=== PATIENT | male | born 1965 | race African-American/Black ===

== ENCOUNTER 2016-05-25 04:20 | Emergency (ER) | payer BC ==
[~2016-05-25] VITALS: Ht 185.4 cm; Wt 102.1 kg
--- NOTE | ~2016-05-25 | EKG ---
[place] [address] [facility] [place] [address] ELECTROCARDIOGRAM REPORT Name: SARAH MEJIA Room #: 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: : 1965 Requested By: Rosalie Vides Order Number: [id number] MD: Silas Davey Measurements Intervals [place] Rate: 109 P: 49 NJ: 190 QRS: 49 QRSD: 93 T: -69 QT: 326 QTc: 440 Interpretive Statements Sinus tachycardia Nonspecific ST and T wave abnormality No previous ECG available for comparison Electronically Signed On 05-25-2016 7:59:52 [employer]IL HEATER INST[employer]ER by Silas Davey [email or web address] <ELECTRONICALLY SIGNED> By: Silas Davey MD, [facility] 05/25/16 0759 [id number] [id number] Silas Davey MD, FACC /EPI
[2016-05-25] MEDS ORDERED: CLARITIN10 MG PO (04:39)
[2016-05-25 04:47] LABS: ABSOLUTE NEUTROPHILS 3.4 thou/uL (1.4-8.2); BASOPHILS 0.6 % (0.0-2.0); EOSINOPHILS 4.4 % (0.0-3.0); HEMATOCRIT 54.5 % (42.0-52.0); HEMOGLOBIN 18.1 gm/dL (14.0-18.0); LYMPHOCYTES 30.8 % (24.0-44.0); MCH 29.2 pg (26.0-34.0); MCHC 33.2 % (28.0-37.0); MONOCYTES 11.4 % (1.0-8.0); PLATELET COUNT 119 thou/uL (150-400); POLYS 52.8 % (36.0-66.0); RDW 15.3 % (10.5-14.5); WBC 6.5 thou/uL (4.0-11.0)
[2016-05-25 04:50] LABS: MANUAL DIFF NO
[2016-05-25 04:58] LABS: CALCIUM 9.1 mg/dL (8.5-10.1); CREATININE 1.4 mg/dL (0.6-1.3); POTASSIUM 3.5 mmol/L (3.5-5.1)
[2016-05-25] MEDS ORDERED: AZITHROMYCIN 2250 MG PO (05:30)
[2016-05-25 05:33] VITALS: BP 124/80
[2016-05-25 05:37] LABS: LARGE PLATELETS OCCASIONAL
[2016-05-26] MEDS ORDERED: CHLORPROMAZINE25 M1 PO ×2 (14:48→14:50)
[2016-05-26] MEDS ORDERED: FLEXERIL PO (15:20)
[2016-05-26] MEDS ORDERED: LIORESAL 10 MG10 MG PO (15:22)
[2016-06-08] MEDS ORDERED: TYLENOL PM EX-1 EACH PO (22:09)
[2016-06-08] MEDS ORDERED: DOXYCYCLINE 10100 MG PO (22:09)
[2016-06-08] MEDS ORDERED: CHLORPROMAZINE100 MG PO (22:09)
[2016-06-08] MEDS ORDERED: PHENERGAN 25 MG25 M1 PO (23:16)
[2016-06-09] MEDS ORDERED: PEPCID20 MG PO (10:51)
[2016-06-09] MEDS ORDERED: PREVACID30 M2 PO (10:51)
[2016-06-09] MEDS ORDERED: VALIUM5 MG PO (11:19)
== END 2016-05-25 05:47 | disposition home or self-care (01) ==
LOC: ER 04:20
PROVIDERS: Emergency Medicine
DX: J06.9 Acute upper respiratory infection, unspecified (principal); Z88.2 Allergy status to sulfonamides

== ENCOUNTER 2016-05-26 13:59 | Emergency (ER) | payer OTHER ==
[~2016-05-26] VITALS: Ht 185.4 cm; Wt 102.1 kg
[~2016-05-26 13:59] MED LIST: AZITHROMYCIN 2250 MG PO; CLARITIN10 MG PO
[2016-05-26] MEDS ORDERED: CHLORPROMAZINE25 M1 PO ×2 (14:48→14:50)
[2016-05-26] MEDS ORDERED: FLEXERIL PO (15:20)
[2016-05-26] MEDS ORDERED: LIORESAL 10 MG10 MG PO (15:22)
[2016-05-26 15:35] VITALS: BP 130/70
[2016-06-08] MEDS ORDERED: DOXYCYCLINE 10100 MG PO (22:09)
[2016-06-08] MEDS ORDERED: TYLENOL PM EX-1 EACH PO (22:09)
[2016-06-08] MEDS ORDERED: CHLORPROMAZINE100 MG PO (22:09)
[2016-06-08] MEDS ORDERED: PHENERGAN 25 MG25 M1 PO (23:16)
[2016-06-09] MEDS ORDERED: PREVACID30 M2 PO (10:51)
[2016-06-09] MEDS ORDERED: PEPCID20 MG PO (10:51)
[2016-06-09] MEDS ORDERED: VALIUM5 MG PO (11:19)
== END 2016-05-26 15:37 | disposition home or self-care (01) ==
LOC: ER 13:59
DX: R06.6 Hiccough (principal); J02.9 Acute pharyngitis, unspecified; F10.99 Alcohol use, unspecified with unspecified alcohol-induced disorder; Z88.2 Allergy status to sulfonamides; Z88.8 Allergy status to other drugs, medicaments and biological substances

== ENCOUNTER 2017-07-30 08:16 | Emergency (ER) | payer BC, OTHER ==
[~2017-07-30] VITALS: Ht 185.4 cm; Wt 99.8 kg
[~2017-07-30 08:16] MED LIST changes: +AFRIN30 ML NASAL; +AMOXICILLIN875 MG PO; +CHLORPROMAZINE100 MG PO; +CHLORPROMAZINE25 M1 PO; +DOXYCYCLINE 10100 MG PO; +FLEXERIL PO; +LIORESAL 10 MG10 MG PO; +PEPCID20 MG PO; +PHENERGAN 25 MG25 M1 PO; +PREVACID30 M2 PO; +SALINE NASAL SP30 ML NASAL; +TYLENOL PM EX-1 EACH PO; +VALIUM5 MG PO
[2017-07-30 08:21] VITALS: BP 147/83
[2017-07-30] MEDS ORDERED: ZPAK PO (08:38)
== END 2017-07-30 08:53 | disposition home or self-care (01) ==
LOC: ER 08:16
DX: H66.91 Otitis media, unspecified, right ear (principal); H91.91 Unspecified hearing loss, right ear; Z88.2 Allergy status to sulfonamides

== ENCOUNTER 2019-06-11 10:46 | Inpatient (IN) | payer BC, OTHER ==
[~2019-06-11] VITALS: Ht 185.4 cm; Wt 100.4 kg
[2019-06-11 10:46] VITALS: BP 140/87
[~2019-06-11 10:46] MED LIST changes: +AFRIN15 M1 NASAL; -AFRIN30 ML NASAL; +ZPAK PO
[2019-06-11 13:28] LABS: HEMATOCRIT 46.6 % (42.0-52.0); HEMOGLOBIN 15.2 gm/dL (14.0-18.0); MCH 28.8 pg (26.0-34.0); MCHC 32.7 g/dL (28.0-37.0); MCV 88.1 fL (80.0-100.0); RBC 5.29 mil/uL (4.50-6.00); RDW 14.6 % (10.5-14.5)
[2019-06-11 13:39] LABS: ANION GAP 7 mmol/L (7-16); BUN 13 mg/dL (7-18); CALCIUM 9.5 mg/dL (8.5-10.1); CHLORIDE 103 mmol/L (98-107); CO2 31 mmol/L (21-32); CREATININE 1.3 mg/dL (0.7-1.3); GLUCOSE 120 mg/dL (74-106); POTASSIUM 3.8 mmol/L (3.5-5.1); SODIUM 141 mmol/L (136-145); TROPONIN-I <0.06 ng/mL (<0.06)
[2019-06-11] MEDS ORDERED: ZESTRIL10 MG PO (14:52)
[2019-06-11] MEDS ORDERED: ELIQUIS5 MG PO (14:52)
[2019-06-11 16:52] VITALS: BP 116/72
[2019-06-11 18:00] VITALS: BP 122/80
[2019-06-11 18:19] VITALS: BP 133/80
[2019-06-11 19:35] LABS: INR 1.1; PROTIME 10.8 Seconds (9.3-11.4)
--- NOTE | 2019-06-11 19:52 | NUR ---
PT. ARRIVED AT FLOOR AROUND 1800; PT. AOX4; ABLE TO AMBULATE WITHOUT ASSISTANCE; NO C/O PAIN; EDUCATED ABOUT NEW MEDICATION & LABS; ST. UNDERSTANDING; REPORT PASSED TO EFFIE LOMAX;
[2019-06-11 20:29] VITALS: BP 128/86
[2019-06-12 00:05] VITALS: BP 130/80
[2019-06-12 05:00] VITALS: BP 106/79
--- NOTE | 2019-06-12 05:05 | NUR ---
PATIENTS CARES WERE ASSUMED AT SHIFT CHANGE PATIENT WAS ASSESSED AND MEDS WERE PASSED. AT APPROX 0140 A CRITACAL VALUE ON THE HEPARIN WAS CALLED. FOLLOWED PROTOCAL. SHUT OFF THE GTT. FOR AN HOUR AND DECREASED BY 3CC AFTER AN HOUR IT WAS TURNED BACK ON. PATIENT IS VERY MUCH ALERT AND ORIENTED. HE IS LOOKING FORWARD TO SOLVING THIS CLOT PROBBLEM AND GET HOME. HOURLY ROUNDS WERE DONE.
[2019-06-12 08:09] VITALS: BP 116/69
[2019-06-12 11:48] VITALS: BP 136/91
--- NOTE | 2019-06-12 13:58 | 2DMMODE ---
[facility] [place] [address] 2 D/M-MODE ECHOCARDIOGRAM Name: SARAH MEJIA Room #: 206-P ADM IN M.R.#: [id number] Admission: 06/11/19 Attend Phys: Barbara Otto MD Discharge: Date of : 67 Report #: [id number] THIS REPORT FOR: cc: Jm Gutierrez MD, Kirk D. MD Lammoglia, Francisco J. MD ~ APPROVED REPORT Study performed: 06/12/2019 13:04:26 EXAM: Comprehensive 2D, Doppler, and color-flow Echocardiogram Patient Location: Echo lab Room #: 206 Status: routine BSA: 2.22 HR: 84 bpm BP: 116/69 mmHg Rhythm: NSR Other Information Study Quality: Good Indications Dyspnea Hypertension/HDD 2D Dimensions RVDd: 39.83 mm IVSd: 12.04 (7-11mm) LVOT Diam: 21.09 (18-24mm) LVDd: 42.35 mm PWd: 11.72 (7-11mm) Ascending Ao: 30.56 (22-36mm) LVDs: 22.92 (25-40mm) Aortic Root: 36.76 mm IVC: 19.00 mm Volumes Left Atrial Volume (Systole) Single Plane 4CH: 34.69 mL Single Plane 2CH: 33.11 mL LA ESV Index: 17.00 mL/m2 Aortic Valve AoV Peak Matthias.: 1.14 m/s AO Peak Gr.: 5.19 mmHg LVOT Max P.15 mmHg LVOT Max V: 1.02 m/s KARLEE Vmax: 3.12 cm2 [facility] [address] [place] [address] 2 D/M-MODE ECHOCARDIOGRAM Name: SARAH MEJIA Room #: 206-P [facility] IN .R.#: [id number] Admission: 06/11/19 Attend Phys: Barbara Otto, Discharge: Date of : 67 Report #: [id number] Mitral Valve E/A Ratio: 1.0 MV Decel. Time: 208.97 ms MV E Max Matthias.: 0.63 m/s MV A Matthias.: 0.60 m/s MV PHT: 60.60 ms IVRT: 106.11 ms Pulmonary Valve PV Peak Matthias.: 0.94 m/s PV Peak Gr.: 3.54 mmHg Pulmonary Vein P Vein S: 0.51 m/s P Vein A: 0.20 m/s P Vein D: 0.45 m/s P Vein A Dur.: 87.7 msec P Vein S/D Ratio: 1.13 Tricuspid Valve TR Peak Matthias.: 2.50 m/s TR Peak Gr.: 25.10 mmHg PA Pressure: 30.00 mmHg Left Ventricle The left ventricle is normal size. There is normal LV segmental wall motion. Mild concentric left ventricular hypertrophy. The left ventricular systolic function is normal. The left ventricular ejection fraction is within the normal range. LVEF is 60-65%. Grade II - pseudonormal filling dynamics. Right Ventricle Right ventricle is at the upper limits of normal. The right ventricular systolic function is normal. Atria The left atrium size is normal. The right atrium size is normal. Aortic Valve The aortic valve is normal in structure. The Aortic valve is sclerotic. Trace to mild aortic regurgitation. There is no aortic valvular stenosis. Mitral Valve The mitral valve is normal in structure. There is no mitral valve regurgitation noted. No evidence of mitral valve stenosis. [facility] [address] [place] [address] 2 D/M-MODE ECHOCARDIOGRAM Name: SARAH MEJIA Room #: 206-P [facility] IN .R.#: [id number] Admission: 06/11/19 Attend Phys: Barbara Otto, Discharge: Date of : 67 Report #: [id number] Tricuspid Valve The tricuspid valve is normal in structure. There is trace tricuspid regurgitation. Estimated PAP 30 mmHg. There is no pulmonary hypertension. Pulmonic Valve The pulmonary valve is normal in structure. There is no pulmonic valvular regurgitation. Great Vessels The aortic root is normal in size. IVC is normal in size and collapses >50% with inspiration. Pericardium There is no pericardial effusion. <Conclusion> The left ventricle is normal size. LVEF is 60-65%. Right ventricle is at the upper limits of normal. The aortic valve is normal in structure. The Aortic valve is sclerotic. Trace to mild aortic regurgitation. The mitral valve is normal in structure. The tricuspid valve is normal in structure. There is trace tricuspid regurgitation. Estimated PAP 30 mmHg. There is no pulmonary hypertension. The pulmonary valve is normal in structure. There is no pericardial effusion. <ELECTRONICALLY SIGNED> By: Cuco Baldwin MD 06/12/19 1357 1357 135 Cuco Baldwin MD /INF
[2019-06-12 16:34] VITALS: BP 119/67
[2019-06-12 20:45] VITALS: BP 113/54
--- NOTE | 2019-06-12 21:53 | HC ---
[facility] [place] [address] [place] [address] CONSULTATION Name: SARAH MEJIA Room #: 206-P ADM IN M.R.#: [id number] Admission: 06/11/19 Attend Phys: Barbara Otto MD Discharge: Date of : 67 Report #: [id number] THIS REPORT FOR: cc: Jm Gutierrez MD, Kirk D. MD McKittrick, Richard James MD ~ CC: Jm Navarro MD REQUESTING PHYSICIAN: Dr. Barbara Otto. REASON FOR CONSULTATION: Unprovoked right chest pulmonary embolus. HISTORY OF PRESENT ILLNESS: The patient is a very pleasant 54-year-old gentleman from the [place] area who [place] [address] [facility], who has about a 2-week history of cough, 2-day history of left calf discomfort without any swelling. He went to the [facility] ER, had a CT angio that found 2 clots and was begun on Eliquis and sent home. He later on had coughed up some blood and came to [facility] ER that same date and was admitted for observation. The patient is currently on heparin. He has not had any more blood if I understand correctly or anymore bleeding if I understand correctly. The patient has no recent definite severe infection or trauma that he is aware of, so this would appear to be an unprovoked clot. No recent hormone usage. He had begun working out. No headaches. No fevers, no chills. Did have a cough, slightly productive. No diarrhea, no blood in his urine or stool, no arm or leg swelling. No skin rash. PAST MEDICAL HISTORY: Notable for some right shoulder rotator cuff surgery several years ago with some recent discomfort; also some, I believe, right knee surgery in the past with some discomfort, unchanged. Also, hypertension. He has had also been on antibiotic for the cough. 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 Nonsmoker, no significant alcohol, no street drugs. FAMILY HISTORY: No known clots. Has 2 children alive and well. MEDICATIONS: At this time currently include flu vaccine given once, loratadine 10 mg daily, heparin protocol. PHYSICAL EXAMINATION: VITAL SIGNS: Height is 6 feet 1 inch, 185.4 cm. Weight 221 pounds or 100.4 kilograms. Blood pressure 106/79, O2 sat 98%, pulse 77, temperature 97.7. [facility] [address] [place] [address] CONSULTATION Name: SARAH MEJIA Room #: 206-P ADM IN M.R.#: [id number] Admission: 06/11/19 Attend Phys: Barbara Otto MD Discharge: Date of : 67 Report #: [id number] MOOD: Alert, pleasant and conversant. NEUROLOGIC: Speech and thought pattern normal. Moving extremities well. LYMPHATICS: No enlarged lymph nodes in the supraclavicular, cervical, axillary or inguinal region. ABDOMEN: Soft, without masses. EXTREMITIES: Without clubbing, cyanosis or edema. LABORATORY DATA: Here has a BUN of 13, creatinine 1.3. INR baseline 1.1. APT baseline 29.6. White count 5, hemoglobin 15.2, platelets 165. Differential, nonacute. Someone has drawn antithrombin C, protein C and protein S, which may be affected by the recent clot. Also, they did anticardiolipin IgM and IgG, which are pending and APC resistance. ASSESSMENT AND PLAN: 1. Right-sided pulmonary embolism that appears to be unprovoked. I agree with anticoagulation with heparin and transition to oral agent with no additional bleeding. The patient will either need long-term or at least 1 year of anticoagulation. We will also order CT abdomen and pelvis to make sure he does not have an occult malignancy. Also, check upper extremity ultrasound as he has had some right shoulder discomfort, would like to see the patient back probably in about 6 months to discuss additional hypercoag which would probably best be drawn off of anticoagulation, will also which include beta 2 glycoprotein, DRVVT and hexagonal phase phospholipid. 2. Hypertension. Meds per others. 3. Cough. Meds per others including loratadine. We will follow with you. Note, we will also check a serum protein electrophoresis. <ELECTRONICALLY SIGNED> By: Shashank Baez MD 06/12/19 2153 [id number] 1027 Shashank Baez MD /nt
--- NOTE | 2019-06-13 03:08 | NUR ---
ASSESSMENT DOCUMENTED.PT BEEN RESTING IN NO ACUTE DISTRESS.A/OX4.VSS.ON HEPARIN DRIP FOR PULMONARY EMBOLISM W/O ADVERSE EFFECTS.UP AD ROBBIE TO BR.NSR ON MONITOR.RA W/O RESP DISTRESS.POC IS TO MONITOR APTT LEVELS AND CONT WITH HEPARIN DRIP.
[2019-06-13 04:39] VITALS: BP 113/68
--- NOTE | 2019-06-13 07:33 | NUR ---
PT REPORTED COUGHING UP BLOOD THIS MORNING LIKE HE DID YESTERDAY.ON HEPARIN DRIP WITH APTT DUE AT 7AM.APTT DRAWN SLIGHTLY HIGH AT 76.5.PT UPDATED ON APTT LEVEL AND HEPARIN PROTOCOL FOLLOWED,RATE REDUCED BY TWO.APTT TO BE DRAWN AGAIN AT 1300.WILL CONT TO MONITOR PER POC.
[2019-06-13 07:45] VITALS: BP 111/77; BP 117/48
--- NOTE | 2019-06-13 10:36 | H ---
[facility] [address] [address] HISTORY AND PHYSICAL Name: SARAH MEJIA Room #: 206-P ADM IN M.R.#: [id number] Admission: 06/11/19 Attend Phys: Barbara Otto MD Discharge: Date of : 67 Report #: [id number] THIS REPORT FOR: //name// CC: Jm Navarro DATE OF SERVICE: 06/11/2019 ADMISSION HISOTRY AND PHYSICAL EXAMINATION PRIMARY CARE PHYSICIAN: Dr. Jm Gutierrez. CHIEF COMPLAINT: 1. Cough for past 2 weeks. 2. Hemoptysis this morning. 3. Leg pain for past 2 weeks. 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 The patient denies any recent travel, trauma or any surgery, surgical procedures and he noticed that the cough was particularly worse when he was lying down and it was not associated with any sinus drainage, rhinorrhea or sputum production. The patient also noticed a cramping in the left leg and that bothered him as he does not have any history of back pain or any other health issues and so he made an appointment and saw his primary care physician and was told to stop lisinopril as that could be causing cough. However, the nurse practitioner who saw him noticed some crackles in the lungs and started him on antibiotics. This morning 4 o'clock the patient woke up because of worsening cough and he had to sit up, as soon as he would lie down on his right side, the cough will be worse and therefore, he had to sit up and he noticed that his leg cramping got worse and then he noticed an episode of hemoptysis. So far, his sputum has been clear and very small amount and has not been associated with any fever, shaking chills or night sweats. The patient informs me that he went to [facility] ER and was told to have pulmonary embolism in the right lower lobe and was discharged to go home on apixaban. However, the patient lives alone at home and he continued to have this persistent cough with one episode of hemoptysis and blood thinner on board. The patient was concerned about being at home by himself and also wanted to know what is the cause of the blood clots for him and if there is any worsening, he is going to experience with his hemoptysis with his new medications and he usually comes to the Emergency Room and he is familiar with [facility] and therefore as he got checked out from the [facility], he came straight here and he had taken 1 dose of apixaban and came to the ER here for further workup. The patient is being admitted for hemoptysis, persistent cough and persistent chest wall pain, persistent right sided chest [address] [address] HISTORY AND PHYSICAL Name: SARAH MEJIA Room #: 206-P [facility] IN M.R.#: [id number] Admission: 06/11/19 Attend Phys: Barbara Otto MD Discharge: Date of : 67 Report #: [id number] pain and new onset pulmonary embolism. The patient denies any fever, shaking chills, night sweats and denies any recent hematuria, hematochezia or melena. He has not had any history of peptic ulcer disease or any bleeding complication. Denies any dizziness, lightheadedness associated with these symptoms and also has not had any palpitations or chest pressure with exertion or dyspnea with exertion in last 2 weeks. REVIEW OF SYSTEMS: Review of systems is positive for back pain only for last 3-4 days after moving a heavy furniture. He sprained his back; however, the symptoms are significantly better and he does not have any persistent back problems. PAST MEDICAL HISTORY: Significant for hypertension and he has been on lisinopril for this until recently when there was concern was that lisinopril could be contributing to cough; however, now it will be continued as the patient does not have lisinopril as the cause of his cough. ALLERGIES: THE PATIENT IS ALLERGIC TO STEROIDS AND IT IS NOT REALLY RASH, BUT HE HAS INTRACTABLE HEADACHES WITH STEROIDS AND THEREFORE HE AVOIDS TAKING ANY PREDNISONE. 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 Denies any other secondhand smoke exposure. FAMILY HISTORY: Mother has congestive heart failure, COPD, diabetes mellitus. Father's side of the family, he is not known to and he denies any history of cancer in the maternal side of the family. PAST SURGICAL HISTORY: Significant for right knee ACL and meniscus tear and right shoulder rotator cuff tear. The patient is full code and his emergency contact as his significant other, Jus Juarez and her phone number is [phone] and she is an emergency contact as well as [facility]. PHYSICAL EXAMINATION: VITAL SIGNS: Temperature is 37.1, heart rate 95, respiration 18, blood pressure 140/87, pulse oximetry 99% on room air. GENERAL: Alert and oriented to time, place and person, very pleasant 54-year-old gentleman who is in no acute distress except persistent cough with clear sputum noted during my visit. HEENT: Normocephalic, atraumatic. Pupils are equally round and reactive to light and accommodation. Conjunctivae are clear. Sclerae are nonicteric. Extraocular muscle movement is intact. Oropharynx is clear. No postnasal drip noted. Mucous membranes are moist. NECK: Supple, no JVD, no lymphadenopathy, no thyromegaly. HEART: S1, S2, regular. No murmur, no S3, no S4. No tachycardia noted. [address] [address] HISTORY AND PHYSICAL Name: SARAH MEJIA Room #: 206-P ADM IN M.R.#: [id number] Admission: 06/11/19 Attend Phys: Barbara Otto MD Discharge: Date of : 67 Report #: [id number] LUNGS: Clear to auscultation bilaterally without any crackles or wheezes. The patient has bilaterally symmetrical chest expansion. ABDOMEN: Soft, nontender, nondistended, normal active bowel sounds. EXTREMITIES: No edema both lower extremities. NEUROLOGIC: Completely nonfocal. LABORATORY DATA: Include WBC 5000, hemoglobin 15.2, hematocrit 46.6, and platelet count 165. Chemistries indicate sodium 141, potassium 3.8, chloride 103, bicarbonate 31, anion gap 7, BUN 13, creatinine 1.3, estimated GFR 70, glucose 120, and calcium 9.5. Troponin I is less than 0.06. The patient had radiological studies done. Chest x-ray indicates multiple abnormalities with a degenerative spine changes and calcified granuloma, which makes pulmonary infiltrate and mass difficult to evaluate and CT is recommended; however, the patient has a CT scan of the chest with angiogram this morning at [facility] and the report is pending. Bilateral venous Doppler is negative study for any venous thrombosis. Electrocardiogram is pending. ASSESSMENT AND PLAN: 1. New onset pulmonary embolism with hemoptysis. 2. Hypertension. 3. Back pain, muscular sprain. 4. The patient is full code. 5. Deep vein thrombosis prophylaxis, the patient will be on heparin drip. Gastrointestinal prophylaxis, we will give Pepcid p.o. b.i.d. PLAN: The patient is being admitted to critical care telemetry with new onset pulmonary embolism. We will go ahead and get hypercoagulable workup and we will go ahead and start a heparin drip and we will consult Dr. Baez for further evaluation for new onset PE. Plan was discussed with the patient and I informed him that it will be advisable for him not to take any ibuprofen or NSAIDs and Tylenol for any nonspecific aches and pains and he understands and agrees. We will write for nebulizer breathing treatment if he has any worsening of cough or any wheezing noted and we will restart apixaban when the heparin drip is completed for initial 24 hours and plan of care was discussed with the patient and advised the patient to keep appointment with Dr. Baez as a followup as some of the hypercoagulable labs take about 10-14 days for the results to come back and he would need to discuss them with Dr. Baez and the patient understands and agrees and plan of care was discussed with the ER provider as well as with the patient. <ELECTRONICALLY SIGNED> By: Barbara Otto MD 06/13/19 1036 1746 [id number] Barbara Otto MD /nt
[2019-06-13 14:57] LABS: URINE BILIRUBIN NEGATIVE (Negative); URINE BLOOD NEGATIVE (Negative); URINE CLARITY CLEAR; URINE COLOR YELLOW; URINE GLUCOSE-RANDOM* NEGATIVE (Negative); URINE KETONES NEGATIVE (Negative); URINE LEUKOCYTES NEGATIVE (Negative); URINE NITRITE NEGATIVE (Negative); URINE PROTEIN (DIPSTICK) NEGATIVE (Negative)
[2019-06-13 15:19] LABS: INR 1.1; PROTIME 11.6 Seconds (9.3-11.4)
[2019-06-13 15:50] VITALS: BP 109/67
--- NOTE | 2019-06-13 18:36 | NUR ---
ASSUMED CARE AT SHIFT CHANGE, ALERT AND ORIENTED X4. VSS AND AFEBRILE, PT IS ON ORAL ANTICOAGLANT AND HEPARIN GTT DISCONTINUED. C/O RT FLANK PAIN, AND DR VILLALOBOS NOTIFIED NEW ORDERS FOR US ABD. AND WILL CONTNUE WITH POC.
[2019-06-13 20:30] VITALS: BP 126/76
[2019-06-14 04:30] VITALS: BP 114/75
--- NOTE | 2019-06-14 05:20 | NUR ---
PATIENTS CARES WERE ASSUMED AT SHIFT CHANGE. PATIENT WAS ASSESSED AND MEDS WERE PASSED. PATIENT CONTINUES TO SHOW SOME ANXIETY IN REGARDS TO HIS MEDICAL CONDITION. PATIENT IS INDEPENDENT IN HIS ROOM. HIS S.O. HAS BEED AT THE BEDSIDE THIS EVENING. OUTSIDE FOOD AND DRINKS WERE BROUGHT IN. HOURLY ROUNDS WERE DONE. THE BED IS IN A LOW AND LOCKED POSITION. PATIENT DID SLEEP APPROX 7 TO 9 HOURS.
[2019-06-14 05:55] LABS: HEMATOCRIT 44.5 % (42.0-52.0); HEMOGLOBIN 14.5 gm/dL (14.0-18.0); MCH 28.8 pg (26.0-34.0); MCHC 32.6 g/dL (28.0-37.0); MCV 88.3 fL (80.0-100.0); RBC 5.04 mil/uL (4.50-6.00); RDW 14.8 % (10.5-14.5); WBC 5.2 thou/uL (4.0-11.0)
[2019-06-14] MEDS ORDERED: ELIQUIS5 MG PO (07:48)
[2019-06-14 08:10] VITALS: BP 124/84
--- NOTE | 2019-06-14 12:15 | NUR ---
RECEIVED PT'S CARE AROUND 0710; PT. AOX4; AT THE BED SIDE DR. LORA; PT. SCHEDULE TO HAVE US; EDUCATED ABOUT DRINKING WATER; ST. UNDERSTANDING; IRRITABLE ABOUT NOT TAKING MEDICATION AT 0915; ST. "MY TOLD ME IF I DO NOT TAKE AT THE SAME TIME EVERY DAY THE MEDICATION WEARS OFF"; PT. EDUCATED ABOUT SCHEDULED OF PASSING MEDICATION IN THE HOSPITAL; FROM 8-10AM; UPSET; WANTED TO KNOW HOW LONG THE US WILL LAST; GONE TO PROCEDURE; DURING AM ASSESSMENT NO C/O PAIN; AM MEDICATION GIVEN; D/C ORDERS ON PLACE; PT. NOTIFIED; ASSESSMENT CHARGED; FOLLOWING POC; WORKING ON D/C;
[2019-06-14 12:21] VITALS: BP 124/89
[2019-06-14 12:42] LABS: URINE BILIRUBIN NEGATIVE (Negative); URINE BLOOD NEGATIVE (Negative); URINE CLARITY CLEAR; URINE COLOR YELLOW; URINE GLUCOSE-RANDOM* NEGATIVE (Negative); URINE KETONES NEGATIVE (Negative); URINE LEUKOCYTES NEGATIVE (Negative); URINE NITRITE NEGATIVE (Negative); URINE PROTEIN (DIPSTICK) NEGATIVE (Negative); URINE UROBILINOGEN 0.2 E.U./dl (0.2-1.0)
[2019-06-14 14:12] LABS: GLOBULIN TOTAL 3.3 g/dL (2.2-3.9); M-SPIKE Not Observed g/dL (Not Observed)
== END 2019-06-14 13:11 | disposition home or self-care (01) | DRG 176 ==
LOC: ER 10:46 → EROBS 16:37 → 2N 16:37
PROVIDERS: Emergency Medicine Emergency Medical Services; Internal Medicine; Internal Medicine Hematology & Oncology; ADMIT Internal Medicine
DX: I26.99 Other pulmonary embolism without acute cor pulmonale (principal); R04.2 Hemoptysis; I10 Essential (primary) hypertension; S39.012A Strain of muscle, fascia and tendon of lower back, initial encounter; X58.XXXA Exposure to other specified factors, initial encounter; E66.3 Overweight; Z79.01 Long term (current) use of anticoagulants; Z86.711 Personal history of pulmonary embolism; Z88.0 Allergy status to penicillin; Z88.8 Allergy status to other drugs, medicaments and biological substances; Z88.2 Allergy status to sulfonamides; Z82.49 Family history of ischemic heart disease and other diseases of the circulatory system; Z82.5 Family history of asthma and other chronic lower respiratory diseases; Z83.3 Family history of diabetes mellitus; Y93.89 Activity, other specified; Y92.89 Other specified places as the place of occurrence of the external cause; Y99.8 Other external cause status; Z68.29 Body mass index [BMI] 29.0-29.9, adult; Z28.21 Immunization not carried out because of patient refusal
CPT/HCPCS: 10081

== ENCOUNTER 2019-06-22 22:26 | Emergency (ER) | payer BC, OTHER ==
[~2019-06-22] VITALS: Ht 185.4 cm; Wt 97.5 kg
[~2019-06-22 22:26] MED LIST changes: +ELIQUIS5 MG PO; +ZESTRIL10 MG PO
[2019-06-22 23:50] VITALS: BP 114/73
== END 2019-06-22 23:50 | disposition home or self-care (01) ==
LOC: ER 22:26
DX: R51 Headache (principal); I10 Essential (primary) hypertension; Z88.0 Allergy status to penicillin; Z88.2 Allergy status to sulfonamides; Z88.8 Allergy status to other drugs, medicaments and biological substances; Z86.711 Personal history of pulmonary embolism

== ENCOUNTER 2019-07-07 21:00 | Emergency (ER) | payer BC, OTHER ==
[~2019-07-07] VITALS: Ht 185.4 cm; Wt 95.3 kg
[2019-07-07 22:58] VITALS: BP 106/72
== END 2019-07-07 23:04 | disposition home or self-care (01) ==
LOC: ER 21:00
DX: M79.661 Pain in right lower leg (principal); M54.5 Low back pain; Z79.899 Other long term (current) drug therapy

== ENCOUNTER → 2019-07-26 | Outpatient (CLI) | payer BC, OTHER | LOC: CAT 13:10 | DX: R91.8 Other nonspecific abnormal finding of lung field (principal); J84.10 Pulmonary fibrosis, unspecified; Z86.711 Personal history of pulmonary embolism ==

== ENCOUNTER → 2019-08-12 | Outpatient (CLI) | payer BC, OTHER | LOC: SJCVCINTER 10:20 → SJCVCIMAG 10:20 | DX: I08.8 Other rheumatic multiple valve diseases (principal); M79.601 Pain in right arm; M79.89 Other specified soft tissue disorders ==

== ENCOUNTER → 2020-02-04 | Outpatient (CLI) | payer OTHER, BC | LOC: CAT 15:01 | PROVIDERS: ATTEND Internal Medicine Pulmonary Disease | DX: R91.8 Other nonspecific abnormal finding of lung field (principal); I26.94 Multiple subsegmental thrombotic pulmonary emboli without acute cor pulmonale ==

== ENCOUNTER → 2020-05-28 | Outpatient (CLI) | payer BC, OTHER | LOC: SJCVCIMAG 08:27 | PROVIDERS: ATTEND Internal Medicine Cardiovascular Disease | DX: I82.C21 Chronic embolism and thrombosis of right internal jugular vein (principal) ==

== ENCOUNTER → 2020-11-20 | Outpatient (CLI) | payer OTHER | LOC: CAT 14:32 | PROVIDERS: ATTEND Internal Medicine Cardiovascular Disease | DX: Z13.6 Encounter for screening for cardiovascular disorders (principal) ==

== ENCOUNTER → 2021-06-01 | Outpatient (CLI) | payer OTHER, BC | LOC: ULTRA 10:22 | PROVIDERS: ATTEND Internal Medicine Hematology & Oncology | DX: I27.82 Chronic pulmonary embolism (principal) ==